=== PATIENT | female | born 1995 | race Caucasian/White ===

== ENCOUNTER 2016-12-16 13:34 | Emergency (ER) | payer MEDICAID ==
[~2016-12-16] VITALS: Ht 132.1 cm; Wt 76.4 kg
[~2016-12-16 13:34] MED LIST: NO HOME MEDICATIONS
[2016-12-16 13:41] VITALS: TEMP 98.5
[2016-12-16] MEDS ORDERED: TAMIFLU 75MG75 MG PO (13:44)
[2016-12-16] MEDS ORDERED: ZOFRAN ODT4 MG PO (13:44)
[2016-12-16 14:52] LABS: HEMATOCRIT 43.7 % (37.0-47.0); HEMOGLOBIN 14.9 g/dl (12.5-16.0); MEAN CELL VOLUME 93 fl (80.0-100.0); MEAN CORPUSCULAR HEMOGLOBIN 32 pg (27.0-31.0); MEAN CORPUSCULAR HGB CONC 34 g/dl (33.0-37.0); MEAN PLATELET VOLUME 8.6 fl (7.4-10.4); PLATELET COUNT 200 K/mm3 (130-400); RED BLOOD COUNT 4.72 M/mm3 (4.10-5.30); REDCELL DISTRIBUTION WIDTH-CV 13.5 % (11.5-14.5); WHITE BLOOD COUNT 9.4 K/mm3 (4.8-10.8)
[2016-12-16 15:02] LABS: ADJUSTED CALCIUM 9.1 mg/dL (8.4-10.2); ALBUMIN 3.6 gm/dL (3.5-5.0); BILIRUBIN,TOTAL 0.7 mg/dL (0.0-1.0); CALCIUM 8.8 mg/dL (8.4-10.2); CREATININE, serum 0.74 mg/dL (0.52-1.25); POTASSIUM 3.9 mmol/L (3.4-5.0); TOTAL PROTEIN 7.5 gm/dL (6.4-8.2)
[2016-12-16 15:07] LABS: ADD PATHOLOGY DIFF REVIEW NO
[2016-12-16 15:48] LABS: BAND 2 % (0-10); BASOPHIL 1 % (0-2); NEUTROPHILS 87 % (42.0-75.2); TOTAL CELLS COUNTED 100
[2016-12-16 15:50] LABS: ANISOCYTOSIS 1+; HYPOCHROMIA 1+; MICROCYTOSIS 1+; STOMATOCYTE 1+
[2016-12-16 16:12] LABS: PH 6 (5-8); URINE APPEARANCE Hazy; URINE BACTERIA None Seen /hpf; URINE BILIRUBIN Negative (NEGATIVE); URINE BLOOD Negative (NEGATIVE); URINE COLOR Yellow; URINE GLUCOSE Negative (NEGATIVE); URINE KETONE 1+ (NEGATIVE); URINE RBC 0-2 /hpf; URINE UROBILINOGEN Negative (NEGATIVE)
[2016-12-16 16:38] VITALS: BP 134/77; PULSE 120
== END 2016-12-16 16:38 | disposition home or self-care (01) ==
LOC: COL.ER 13:34
PROVIDERS: Nurse Practitioner
DX: J11.2 Influenza due to unidentified influenza virus with gastrointestinal manifestations (principal)
CPT/HCPCS: J2405; J7030

== ENCOUNTER 2017-02-03 08:08 | Day surgery (SDC) | payer MEDICAID ==
[~2017-02-03] VITALS: Ht 132.1 cm; Wt 76.3 kg
[~2017-02-03 08:08] MED LIST changes: +TAMIFLU 75MG75 MG PO; +ZOFRAN ODT4 MG PO
[2017-02-03 09:13] VITALS: BP 123/66; PULSE 72; TEMP 97.4
[2017-02-03] MEDS ORDERED: SYNTHROID 0.0.025 MG PO (09:50)
[2017-02-03] MEDS ORDERED: VESTURA PO (09:51)
[2017-02-03] MEDS ORDERED: MELATONIN1 MG PO (09:52)
[2017-02-03 12:35] VITALS: BP 115/83; PULSE 108; TEMP 97.2
[2017-02-03 12:50] VITALS: BP 96/78; PULSE 94
[2017-02-03] MEDS ORDERED: PEN-VEE K500 MG PO (12:58)
[2017-02-03 13:00] VITALS: BP 111/73; PULSE 709
[2017-02-03 13:32] VITALS: BP 102/69; PULSE 98; TEMP 98
== END 2017-02-03 13:30 | disposition home or self-care (01) ==
LOC: SDCO 08:08
DX: K02.9 Dental caries, unspecified (principal); Q90.9 Down syndrome, unspecified
CPT/HCPCS: J0690; J2405; J2704; J3010; J7120

== ENCOUNTER → 2017-02-08 | Outpatient (CLI) | payer MEDICAID ==
[~2017-02-08] MED LIST changes: +MELATONIN1 MG PO; +PEN-VEE K500 MG PO; +SYNTHROID 0.0.025 MG PO; +VESTURA PO
== END ==
LOC: COL.VAS 09:30
DX: I51.7 Cardiomegaly (principal); Q90.9 Down syndrome, unspecified